=== PATIENT | female | born 1965 | race Caucasian/White ===

== ENCOUNTER 2019-03-21 05:40 | Inpatient (IN) | payer BC ==
[2019-03-21] MEDS ORDERED: CEFAZOLIN 1 GM INJ ×2 (07:12→11:40)
[2019-03-21] MEDS ORDERED: GLYCOPYRROLATE 0.4 MG INJ (07:12)
[2019-03-21] MEDS ORDERED: NEOSTIGMINE 3 MG/3 ML SYRINGE (07:12)
[2019-03-21] MEDS ORDERED: ROCURONIUM 50 MG INJ (07:12)
[2019-03-21] MEDS ORDERED: PROPOFOL 20 ML (07:12)
[2019-03-21] MEDS ORDERED: MIDAZOLAM 1 MG/ML 2 ML INJ (07:14)
[2019-03-21] MEDS ORDERED: FENTAnyl 50 MCG/ML VIAL ×2 (07:14→08:32)
[2019-03-21] MEDS ORDERED: DEXAMETHASONE 4 MG/ML 5 ML INJ (07:14)
[2019-03-21] MEDS ORDERED: ONDANSETRON 4 MG INJ (07:14)
[2019-03-21] MEDS ORDERED: ROPIVACAINE 0.5 % 30 ML VIAL (07:15)
[2019-03-21] MEDS ORDERED: ALBUTEROL 0.083% (NEB) 2.5 MG/3 ML AMP HHN (07:30)
[2019-03-21] MEDS ORDERED: FENTAnyl 50 MCG/ML VIAL IV ×3 (07:30)
[2019-03-21] MEDS ORDERED: HYDROmorphONE 1 MG/5 ML IV SYRINGE IV (07:30)
[2019-03-21] MEDS ORDERED: DIPHENHYDRAMINE 50 MG INJ IV (07:30)
[2019-03-21] MEDS: LACTATED RINGER'S 1,000 ML IV ×2 (07:30→20:50)
[2019-03-21] MEDS ORDERED: IPRATROPIUM (NEB) 0.5 MG/2.5 ML AMP HHN (07:30)
[2019-03-21] MEDS ORDERED: LABETALOL HCL 20MG INJ IV (07:30)
[2019-03-21] MEDS ORDERED: OXYCODONE/ACETAMINOPHEN (5/325) TAB PO ×2 (07:30)
[2019-03-21] MEDS ORDERED: MIDAZOLAM 1 MG/ML 2 ML INJ IV (07:30)
[2019-03-21] MEDS ORDERED: EPHEDrine 25 MG/5 ML SYG IV (07:30)
[2019-03-21] MEDS ORDERED: TRIMETHOBENZAMIDE 100 MG/ML VIAL IM (07:30)
[2019-03-21] MEDS: POLYMYXIN/BACITRACIN 1L IRRIG (08:27)
[2019-03-21] MEDS ORDERED: LABETALOL HCL 20MG INJ (09:45)
[2019-03-21] MEDS: POLYMYXIN/BACITRACIN 1L IRRIG IRR (11:06)
[2019-03-21] MEDS ORDERED: SUGAMMADEX SODIUM 200 MG/2 ML VIAL IV (12:41)
[2019-03-21] MEDS ORDERED: POLYMYXIN/BACITRACIN 1L IRRIG (13:10)
[2019-03-21] MEDS: CEFAZOLIN 2 GM/50 ML (PMX) 50 ML IVPB ×2 (13:34)
[2019-03-21] MEDS: MEPERIDINE 25 MG INJ IV (13:36)
[2019-03-21] MEDS: ONDANSETRON 4 MG INJ IV (13:36)
[2019-03-21] MEDS: hydrALAzine 20 MG INJ IV (13:45)
[2019-03-21] MEDS: HYDROmorphONE 1 MG/5 ML IV SYRINGE IV ×2 (13:45→14:00)
[2019-03-21] MEDS: morphine 2 MG INJ IV (18:59)
[2019-03-21] MEDS: CEFAZOLIN 1 GM/50 ML (PMX) 50 ML IVPB (20:21)
[2019-03-21] MEDS: OXYCODONE/ACETAMINOPHEN (10/325) TAB PO (20:21)
[2019-03-22] MEDS: OXYCODONE/ACETAMINOPHEN (10/325) TAB PO ×4 (00:48→21:01)
[2019-03-22] MEDS: LACTATED RINGER'S 1,000 ML IV ×2 (00:52→19:29)
[2019-03-22] MEDS ORDERED: ACETAMINOPHEN 325 MG TAB PO (12:30)
[2019-03-22] MEDS ORDERED: ONDANSETRON 4 MG INJ IV (12:30)
[2019-03-22 13:30] LABS: ADD MAN DIFF? NO
[2019-03-22 13:31] LABS: WHITE BLOOD COUNT 12.4 10^3/ul (4.8-10.8)
[2019-03-22 13:31] LABS: BASOPHILS % 0.2 % (0.0-2.0); HEMATOCRIT 29.7 % (37.0-47.0); HEMOGLOBIN 9.2 g/dl (12.0-16.0); LYMPHOCYTES % 16.3 % (15.0-51.0); MEAN CORPUSCULAR HEMOGLOBIN 25.6 pg (29.0-33.0); MEAN CORPUSCULAR VOLUME 82.7 fl (82.0-101.0); MEAN PLATELET VOLUME 10.3 fl (7.4-10.4); MONOCYTE # 0.5 10^3/ul (0.3-0.9); MONOCYTES % 3.8 % (0.0-11.0); NEUTROPHIL # 9.8 10^3/ul (1.6-7.5); NEUTROPHILS % 79.4 % (39.0-77.0); PLATELET COUNT 174 10^3/UL (140-415); RED BLOOD COUNT 3.59 10^6/ul (4.20-5.40); RED CELL DISTRIBUTION WIDTH 16.7 % (11.5-14.5)
[2019-03-22] MEDS: FAMOTIDINE 20 MG TAB PO (13:35)
[2019-03-22] MEDS: morphine 2 MG INJ IV ×2 (13:38→22:16)
[2019-03-22 13:48] LABS: ANION GAP 7 (5-13); BLOOD UREA NITROGEN 11 mg/dl (7-20); CALCIUM 8.4 mg/dl (8.4-10.2); CARBON DIOXIDE 27 mmol/L (21-31); CHLORIDE 106 mmol/L (97-110); CREATININE 0.53 mg/dl (0.44-1.00); Estimated GFR > 60 mL/min (>60); GLUCOSE 115 mg/dl (70-220); POTASSIUM 3.7 mmol/L (3.5-5.1); SODIUM 140 mmol/L (135-144)
[2019-03-22 13:50] LABS: PHOSPHORUS 3.3 mg/dl (2.5-4.9)
[2019-03-22] MEDS: hydrALAzine 20 MG INJ IV (21:08)
[2019-03-23] MEDS: OXYCODONE/ACETAMINOPHEN (10/325) TAB PO ×4 (02:05→19:44)
[2019-03-23] MEDS: LACTATED RINGER'S 1,000 ML IV (06:59)
[2019-03-23] MEDS: FAMOTIDINE 20 MG TAB PO (09:30)
[2019-03-23] MEDS: morphine 2 MG INJ IV ×3 (09:33→22:50)
[2019-03-24] MEDS: OXYCODONE/ACETAMINOPHEN (10/325) TAB PO ×4 (02:27→17:00)
[2019-03-24] MEDS: FAMOTIDINE 20 MG TAB PO (09:23)
== END 2019-03-24 17:00 | disposition home health service (06) | DRG 469 ==
LOC: REC 05:40 → MS1 14:12
PROC: 0SRF0JA Replacement of Right Ankle Joint with Synthetic Substitute, Uncemented, Open Approach (ICD-10-PCS; principal; 2019-03-21 07:30)
PROC: 0L8S0ZZ Division of Right Ankle Tendon, Open Approach (ICD-10-PCS; 2019-03-21 07:30)
DX: M19.071 Primary osteoarthritis, right ankle and foot (principal); M21.6X1 Other acquired deformities of right foot; M25.471 Effusion, right ankle; I10 Essential (primary) hypertension; E66.01 Morbid (severe) obesity due to excess calories; E05.90 Thyrotoxicosis, unspecified without thyrotoxic crisis or storm; Z68.38 Body mass index [BMI] 38.0-38.9, adult
CPT/HCPCS: 73610-RT; 80048; 83735; 84100; 84703; 85025; 88304; 88311; 97116; 97162; 97530